=== PATIENT | female | born 1995 | race Caucasian/White ===

== ENCOUNTER 2017-08-06 09:09 | Inpatient (IN) | payer OTHER ==
[~2017-08-06] VITALS: Ht 157.5 cm; Wt 85.0 kg
[2017-08-06] VITALS (26 sets, daily range): BP systolic 103–171; BP diastolic 45–112; PULSE 54–126; RESP 14–20; TEMP 97.3–98.3
[~2017-08-06 09:09] MED LIST: LORT5TAB PO; PRENTAB72 PO
[2017-08-06] MEDS ORDERED: LACTATED RINGER'S 1000 ML INJ 1,000 ML IV PRN (09:28)
[2017-08-06] MEDS ORDERED: PENICILLIN G POTASSIUM INJ 5,000,000 UNITS in SODIUM CHLORIDE 0.9% INJ 100 ML IV ONE (09:30)
[2017-08-06] MEDS ORDERED: OXYTOCIN 30 UNITS-500ML PREMIX 500 ML IV ONE (09:30)
[2017-08-06] MEDS ORDERED: MINERAL OIL 10 ML VIAL TOPICAL PRN (09:30)
[2017-08-06] MEDS ORDERED: SODIUM CHLORID 0.9% 500 ML INJ 500 ML IV PRN (09:30)
[2017-08-06] MEDS ORDERED: CITRIC ACID-SODIUM CITRATE LIQ 30 ML UDC PO SCH (09:30)
[2017-08-06] MEDS ORDERED: LIDOCAINE HCL 1% 50 ML VIAL I-DERMAL PRN (09:30)
[2017-08-06] MEDS ORDERED: LIDOCAINE HCL 1% 50 ML VIAL INFIL PRN (09:30)
--- NOTE | 2017-08-06 09:33 | HHI.HP ---
HPI Chief Complaint Contractions Date Seen: Aug 06, 2017 Time Seen: 09:28 Travel History International Travel<30 Days: No Contact w/Intl Traveler<30Days: No Known Affected Area: No History of Present Illness HPI Patient is 22-year-old white female at 40 weeks 4 days sees the [facility] and presents in active labor. Cervix is 7 cm 100% effaced with a bulging bag, heart tones are reactive and she is lee regularly Weeks Gestation: 40 Para: 1 : 2 History Obstetric History Obstetric History 1 vaginal delivery Social History Alcohol Use: No Tobacco Use: No Substance Abuse: No Allergies-Medications (Allergen,Severity, Reaction): Coded Allergies: No Known Allergies (Unverified , 03/19/12) Home Meds Reported Medications Hydrocodone-Acetaminophen (Lortab 5/500) 5 Mg/500 Mg Tab, 1 TAB PO Q4-6HPRN, #20 03/21/12 Vit W/ Ferrous Fumara () Tab, 1 PO DAILY 03/19/12 Review of Systems General / Constitutional: No: Fever, Weight Gain, Chills, Other Eyes: No: Diploplia, Blurred Vision, Visual changes, Pain, Photophobia HENT: No: Headaches, Vertigo, Lightheadedness Cardiovascular: No: Irregular Rhythm, Chest Pain or Discomfort, Palpitations, Tachycardia, Syncope, Varicosities, Edema, Cyanosis Respiratory: No: Cough, Short of Breath, Other Gastrointestinal: Abdominal Pain, No: Nausea, Vomiting, Diarrhea Genitourinary: No: Decreased Urinary Output, Oliguria Musculoskeletal: No: Limited ROM, Weakness, Cramping, Edema, Pain Skin: No Rash, No Itching, No Dryness, No Lumps, No Change in Pigmentation, No Change in Nails, No Alopecia, No Lesions Neurologic: No: Weakness, Dizziness, Syncope, Focal Abnormalities, Coordination Problem, Headache, Slurred Speech, Seizures Psychiatric: No: Depression, Suicidal Ideations, Homicidal Ideation Endocrine: No: Heat Intolerance, Cold Intolerance, Polydipsia, Polyuria, Other Physical Exam Narrative GENERAL: Well-nourished, well-developed patient. SKIN: Warm and dry. HEAD: Normocephalic and atraumatic. EYES: No scleral icterus. No injection or drainage. ENT: No nasal drainage noted. Mucous membranes pink. Airway patent. NECK: Supple, trachea midline. No JVD. CARDIOVASCULAR: Regular rate and rhythm without murmurs, gallops, or rubs. RESPIRATORY: Breath sounds equal bilaterally. No accessory muscle use. BREASTS: Bilateral exam showed no masses , no retractions, no nipple discharge. ABDOMEN/GI: Abdomen soft, non-tender, bowel sounds present, no rebound, no guarding Gravid to [-40] weeks size Fundal Height: [-40] GENITOURINARY: External Genitalia: intact and normal in appearance BUS glands: [-] Cervix: [-] Dilatation: [-7] Effacement: [100-] Station: [-1] Presentation: [vtx-] Membranes: [intact ] Uterine Contractions: [-reg] FHT's: Category: [1-] Baseline: [-133] Reactive: [-R] Variability: [-mod] Decels: [-none] EXTREMITIES: No cyanosis or edema. BACK: Nontender without obvious deformity. No CVA tenderness. NEUROLOGICAL: Awake and alert. Motor and sensory grossly within normal limits. Five out of 5 muscle strength in all muscle groups. Normal speech. Caprini VTE Risk Assessment Caprini VTE Risk Assessment: No/Low Risk (score <= 1) Caprini Risk Assessment Model Point Value = 1 Point Value = 2 Point Value = 3 Point Value = 5 Age 41-60 Minor surgery BMI > 25 kg/m2 Swollen legs Varicose veins or History of unexplained or recurrent spontaneous Oral contraceptives or hormone replacement Sepsis (< 1 month) Serious lung disease, including pneumonia (< 1 month) Abnormal pulmonary function Acute myocardial infarction Congestive heart failure (< 1 month) History of inflammatory bowel disease Medical patient at bed rest Age 61-74 Arthroscopic surgery Major open surgery (> 45 min) Laparoscopic surgery (> 45 min) Malignancy Confined to bed (> 72 hours) Immobilizing plaster cast Central venous access Age >= 75 History of VTE Family history of VTE Factor V Leiden Prothrombin [id number] Lupus anticoagulant Anticardiolipin antibodies Elevated serum homocysteine Heparin-induced thrombocytopenia Other congenital or acquired thrombophilia Stroke (< 1 month) Elective arthroplasty Hip, pelvis, or leg fracture Acute spinal cord injury (< 1 month) Prophylaxis Regimen Total Risk Factor Score Risk Level Prophylaxis Regimen 0-1 Low Early ambulation 2 Moderate Order ONE of the following: *Sequential Compression Device (SCD) *Heparin 5000 units SQ BID 3-4 Higher Order ONE of the following medications: *Heparin 5000 units SQ TID *Enoxaparin/Lovenox 40 mg SQ daily (WT < 150 kg, CrCl > 30 mL/min) *Enoxaparin/Lovenox 30 mg SQ daily (WT < 150 kg, CrCl > 10-29 mL/min) *Enoxaparin/Lovenox 30 mg SQ BID (WT < 150 kg, CrCl > 30 mL/min) AND/OR *Sequential Compression Device (SCD) 5 or more Highest Order ONE of the following medications: *Heparin 5000 units SQ TID (Preferred with Epidurals) *Enoxaparin/Lovenox 40 mg SQ daily (WT < 150 kg, CrCl > 30 mL/min) *Enoxaparin/Lovenox 30 mg SQ daily (WT < 150 kg, CrCl > 10-29 mL/min) *Enoxaparin/Lovenox 30 mg SQ BID (WT < 150 kg, CrCl > 30 mL/min) AND *Sequential Compression Device (SCD) Data Data Orders Orders Ob (2e) Additional Admit Info (08/06/17 09:28) Admit To Inpatient (08/06/17 ) Vital Signs (Adult) .Per protocol (08/06/17:28) Heart (08/06/17:28) Amnioinfusion (08/06/17:28) Urinary Catheter Management .ONCE (08/06/17:28) Diet Npo (08/06/17 Breakfast) Lactated Ringer's 1000 Ml Inj (Lr 1000 M (08/06/17 09:28) Lactated Ringer's 1000 Ml Inj (Lr 1000 M (08/06/17 09:28) Sodium Chlorid 0.9% 500 Ml Inj (Ns 500 M (08/06/17 09:30) Sodium Chlor 0.9% 1000 Ml Inj (Ns 1000 M (08/06/17 09:48) Lidocaine 1% Inj (50 Ml) (Xylocaine 1% I (08/06/17 09:30) Citric Acid-Sodium Citrate Liq (Bicitra (08/06/17 09:30) Fentanyl Inj (Fentanyl Inj) (08/06/17 09:30) Fentanyl Inj (Fentanyl Inj) (08/06/17 09:30) Penicillin G Potassium Inj (Pfizerpen-G (08/06/17 09:30) Penicillin G Potassium Inj (Pfizerpen-G (08/06/17 13:30) Complete Blood Count With Diff (08/06/17 09:28) Hold Clot (08/06/17 09:28) Abo/Rh Blood Type (08/06/17 09:28) Urinalysis - C+S If Indicated (08/06/17 09:28) Drug Screen, Random Urine (08/06/17:28) Ob/Psych Drug Screen, Urine (08/06/17:28) Resp Oxygen Non Rebreathe Mask (08/06/17 ) ^ Epidural / Intrathecal Infus (08/06/17 09:28) Oxytocin 30 Units-500ml Premix (Pitocin (08/06/17 09:30) Lidocaine 1% Inj (50 Ml) (Xylocaine 1% I (08/06/17 09:30) Light Mineral Oil (Muri-Lube Oil) (08/06/17 09:30) Assessment/Plan Assessment and Plan Patient is a 22-year-old white female at 40 weeks 4 days presents in active labor. Cervix 7/100/-1 bulging bag, vertex presentation, patient sees the [facility] and today Dr. Negron is on for them Impression--active labor at term Plan-admit to labor and delivery, managed labor, anticipate vaginal delivery Keven Young II, MD Aug 06, 2017 09:33
[2017-08-06] MEDS ORDERED: SODIUM CHLOR 0.9% 1000 ML INJ 1,000 ML IV PRN (09:48)
[2017-08-06] MEDS ORDERED: fentaNYL 2MCG-BUPIV 0.125% INJ 100 ML ONE (09:51)
[2017-08-06 09:52] LABS: AUTOMATED NEUTROPHIL # 13.1 TH/MM3 (1.8-7.7); BASOPHIL # 0.1 TH/MM3 (0-0.2); BASOPHIL % 0.4 % (0.0-2.0); EOSINOPHIL # 0.1 TH/MM3 (0-0.4); EOSINOPHIL % 0.4 % (0.0-4.0); HEMOGLOBIN 11.2 GM/DL (11.6-15.3); LYMPH % 11.5 % (9.0-44.0); LYMPHOCYTE # 1.8 TH/MM3 (1.0-4.8); MEAN CELL VOLUME 78.3 FL (80.0-100.0); MEAN PLATELET VOLUME 8.6 FL (7.0-11.0); MONO % 4.9 % (0.0-8.0); MONOCYTE # 0.8 TH/MM3 (0-0.9); NEUT % 82.8 % (16.0-70.0); PLATELET COUNT 282 TH/MM3 (150-450); RED BLOOD COUNT 4.46 MIL/MM3 (4.00-5.30); RED CELL DISTRIBUTION WIDTH 15.7 % (11.6-17.2); WHITE BLOOD COUNT 15.8 TH/MM3 (4.0-11.0)
[2017-08-06 09:58] LABS: BACTERIA, URINE OCC /hpf; BILIRUBIN, URINE NEG (NEG); BLOOD, URINE MOD (NEG); GLUCOSE,URINE NEG (NEG); KETONE, URINE NEG (NEG); NITRITE,URINE NEG (NEG); SQUAMOUS EPITHELIAL CELL URINE 58 /hpf (0-5); URINE COLOR YELLOW (YELLW/STRAW); URINE LEUKOCYTE ESTERASE LARGE (NEG)
[2017-08-06] MEDS: LACTATED RINGER'S 1000 ML INJ 1,000 ML IV SCH ×2 (10:42→17:28)
[2017-08-06] MEDS ORDERED: DO NOT ADMINISTER ANTICOAGULANTS PRN (11:30)
[2017-08-06] MEDS ORDERED: fentaNYL 2MCG-BUPIV 0.125% 100 ML EPIDURAL SCH (11:30)
[2017-08-06] MEDS ORDERED: NO SYSTEM NARCOTICS PRN (11:30)
[2017-08-06] MEDS ORDERED: ePHEDrine/NS 25 MG/5 ML SYRINGE IV PUSH PRN (11:30)
--- NOTE | 2017-08-06 12:10 | PD.OB.DELI ---
Weeks gestation: 40 Gest age assessed date: Aug 06, 2017 Gest age assessed time: 10:00 Pt started active labor?: Yes Active labor start date: Aug 06, 2017 Active labor start time: 07:30 Medical induction of labor?: No Artificial rupture of membrane: Yes Artificial ROM date: Aug 06, 2017 Artifical ROM time: 11:00 Anesthesia: Epidural Episiotomy: None Vaginal Delivery: Normal, Vacuum Presentation: Occiput anterior Nuchal Cord: x1, Other (cord avulsed while reducing nuchal loop at one inch from umbulicus and quickly clamped) Shoulder Dystocia: Suprapubic pressure given Infant: Female Delivery date: Aug 06, 2017 Delivery time: 12:09 One Minute : 9 Five Minute : 9 Placenta: Spontaneous delivery, Other (bilobed placenta with both lobes removed intact) Laceration: No lacerations Estimated blood loss: 200 Antoinette Negron MD Aug 06, 2017 12:10
--- NOTE | 2017-08-06 12:13 | HHI.DCPOC ---
Discharge Care Plan Report Symptoms to Your Doctor -Temperature above 100.5 degrees -Redness, of incision or excessive or foul smelling drainage -Unusual pain or calf pain -Increased vaginal bleeding -Painful or difficulty urinating -Feelings of extreme sadness or anxiety after 2 weeks Goals to Promote Your Health * To prevent worsening of your condition and complications * To maintain your health at the optimal level Directions to Meet Your Goals Take your medications as prescribed Follow your dietary instruction Follow activity as directed Ensure plenty of rest for recovery Drink fluids for hydration Keep your appointments as scheduled Take your immunizations and boosters as scheduled If your symptoms worsen call your PCP, if no PCP go to Urgent Care Center or Emergency Room Smoking is Dangerous to Your Health. Avoid second hand smoke Call the 24-hour crisis hotline for domestic abuse at Antoinette Negron MD Aug 06, 2017 12:13
[2017-08-06] MEDS: PENICILLIN G POTASSIUM INJ 2,500,000 UNITS in SODIUM CHLORIDE 0.9% INJ 100 ML IV SCH ×2 (16:22→17:57)
[2017-08-07 08:00] VITALS: BP 122/77; PULSE 71; RESP 20; TEMP 98.1
--- NOTE | 2017-08-07 08:04 | HHI.OB ---
Subjective Post Day: 1 Remarks Doing well, pain controlled, vaginal bleeding less than menses, Objective Vitals/I&O Vital Signs Date Time Temp Pulse Resp B/P (MAP) Pulse Ox O2 Delivery O2 Flow Rate FiO2 08/06/17 19:15 98.3 66 14 150/84 (106) 08/06/17 13:00 18 08/06/17 13:00 57 131/75 (93) 08/06/17 12:45 63 132/67 (88) 08/06/17 12:41 20 08/06/17 12:31 126 119/60 (79) 08/06/17 12:30 18 08/06/17 12:15 78 130/89 (103) 08/06/17 12:15 16 08/06/17 12:01 66 127/45 (72) 08/06/17 11:57 63 130/67 (88) 08/06/17 11:56 18 08/06/17 11:56 97.3 08/06/17 11:31 60 124/67 (86) 08/06/17 11:00 110 103/63 (76) 08/06/17 10:45 54 116/66 (83) 08/06/17 10:38 18 08/06/17 10:30 57 08/06/17 10:30 62 123/64 (83) 08/06/17 10:26 63 111/72 (85) 08/06/17 10:25 61 08/06/17 10:21 130/69 (89) 08/06/17 10:21 61 08/06/17 10:20 59 08/06/17 10:16 70 137/69 (91) 08/06/17 10:15 65 08/06/17 10:10 69 08/06/17 10:10 69 151/80 (103) 08/06/17 10:07 70 139/112 (121) 08/06/17 10:05 104 08/06/17 10:01 68 171/91 (117) 08/06/17 09:56 97.7 20 08/06/17 09:56 67 164/99 (120) Objective Remarks GENERAL: Well-nourished, well-developed patient. CARDIOVASCULAR: Regular rate and rhythm without murmurs, gallops, or rubs. RESPIRATORY: Breath sounds equal bilaterally. No accessory muscle use. ABDOMEN/GI: Abdomen soft, non-tender. Fundus: Firm, non-tender at umbilicus. GENITOURINARY: Light to moderate bleeding. EXTREMITIES: No cyanosis or edema, non-tender, without signs of DVT. Medications and IVs Current Medications Medications (Trade) Dose Ordered Sig/Parminder Route Start Time Stop Time Status Last Admin (Xylocaine 1% Inj (50 ml)) 0.1 ml UNSCH X1 PRN I-DERMAL 08/06/17 09:30 08/09/17 09:29 (Bicitra Liq) 30 ml AUTOMATIC LINE SET UP MECHANIC PO 08/06/17 09:30 08/10/17 09:29 (Xylocaine 1% Inj (50 ml)) 10 ml UNSCH X1 PRN INFIL 08/06/17 09:30 08/08/17 09:29 Miscellaneous Information No systemic narcotics to be given except... UNSCH PRN .XX 08/06/17 11:30 08/07/17 11:29 Miscellaneous Information DO NOT ADMINISTER ANY ANTICOAGUL... UNSCH PRN .XX 08/06/17 11:30 08/07/17 11:29 (ePHEDrine/NS 25 MG/5 ML SYR) 10 mg UNSCH PRN IV PUSH 08/06/17 11:30 08/07/17 11:29 Assessment/Plan Assessment and Plan 22 yo s/p VAVD at 40.4w, 1. PPD #1: Doing well, afebrile, vital signs stable. Discussed precautions, expectations, and follow-up. Patient was GBS positive, if baby is cleared for discharge later today possible discharge home then, otherwise tomorrow morning. - desires circ, 2. Rh neg: Rhogam per protocol 3. Marijuana positive UDS: Social work involved. Rashad Pringle MD Aug 07, 2017 08:04
[2017-08-07] MEDS ORDERED: SODIUM CHLORIDE 0.9% FLUSH 10 ML FLUSH IV FLUSH PRN (10:00)
[2017-08-07] MEDS ORDERED: ACETAMINOPHEN 325 MG TAB PO PRN (10:00)
[2017-08-07] MEDS ORDERED: WITCH HAZEL 50%/GLYCERIN 12.5% 40 PAD JAR TOPICAL PRN (10:00)
[2017-08-07] MEDS ORDERED: oxyCODONE/ACETAMINOPHEN 5 MG/325 MG TAB PO PRN ×2 (10:00)
[2017-08-07] MEDS ORDERED: IBUPROFEN 800 MG TAB PO PRN (10:00)
[2017-08-07] MEDS ORDERED: ALUMINUM/MAGNESIUM/SIMETH 30 ML CUP PO PRN (10:00)
[2017-08-07] MEDS ORDERED: BENZOCAINE 20% TOPICAL SPRAY 60 ML CAN TOPICAL PRN (10:00)
[2017-08-07] MEDS ORDERED: DOCUSATE SODIUM 50 MG/SENNA 8.6 MG TAB PO PRN (10:00)
[2017-08-07] MEDS ORDERED: ONDANSETRON ODT 4 MG TAB PO PRN (10:00)
[2017-08-07] MEDS ORDERED: OXYTOCIN 30 UNITS-500ML PREMIX 500 ML IV SCH (10:00)
[2017-08-07] MEDS ORDERED: MEASLES, MUMPS, RUBELLA VACCINE 0.5 ML VIAL SQ ONE (16:00)
[2017-08-07] MEDS ORDERED: DIPHTH/TETANUS/ACEL PERTUSSIS (BOOSTER) 0.5 ML VIAL/PFS IM ONE (16:00)
[2017-08-07 20:00] VITALS: BP 143/88; PULSE 76; RESP 18; TEMP 98.2
[2017-08-07] MEDS ORDERED: ZOLPIDEM TARTRATE 5 MG TAB PO PRN (21:00)
[2017-08-07] MEDS ORDERED: SODIUM CHLORIDE 0.9% FLUSH 10 ML FLUSH IV FLUSH SCH (21:00)
--- NOTE | 2017-08-08 07:42 | HHI.OB ---
Subjective Post Day: 2 Remarks Doing well, vaginal bleeding less than menses, ready for discharge home, denies headache, blurred vision, epigastric pain. Objective Vitals/I&O Vital Signs Date Time Temp Pulse Resp B/P (MAP) Pulse Ox O2 Delivery O2 Flow Rate FiO2 08/07/17 20:00 143/88 (106) 08/07/17 20:00 98.2 76 18 08/07/17 08:00 98.1 71 20 122/77 (92) Objective Remarks GENERAL: Well-nourished, well-developed patient. CARDIOVASCULAR: Regular rate and rhythm without murmurs, gallops, or rubs. RESPIRATORY: Breath sounds equal bilaterally. No accessory muscle use. ABDOMEN/GI: Abdomen soft, non-tender. Fundus: Firm, non-tender at umbilicus. GENITOURINARY: Light to moderate bleeding. EXTREMITIES: No cyanosis or edema, non-tender, without signs of DVT. Medications and IVs Current Medications Medications (Trade) Dose Ordered Sig/Parminder Route Start Time Stop Time Status Last Admin (Xylocaine 1% Inj (50 ml)) 0.1 ml UNSCH X1 PRN I-DERMAL 08/06/17 09:30 08/09/17 09:29 (Bicitra Liq) 30 ml EXTENSION COURSE COORDINATOR PO 08/06/17 09:30 08/10/17 09:29 (Xylocaine 1% Inj (50 ml)) 10 ml UNSCH X1 PRN INFIL 08/06/17 09:30 08/08/17 09:29 (Tylenol) 650 mg Q4H PRN PO 08/07/17 10:00 (Motrin) 800 mg Q8H PRN PO 08/07/17 10:00 (Percocet 5-325 Mg) 1 tab Q4H PRN PO 08/07/17 10:00 (Percocet 5-325 Mg) 2 tab Q4H PRN PO 08/07/17 10:00 (NS Flush) 2 ml BID IV FLUSH 08/07/17 21:00 (NS Flush) 2 ml UNSCH PRN IV FLUSH 08/07/17 10:00 (Americaine 20% Top Spr) 1 spray Q4H PRN TOPICAL 08/07/17 10:00 (Tucks Pads) 1 applic QID PRN TOPICAL 08/07/17 10:00 (Matilda-Colace) 2 tab Q12H PRN PO 08/07/17 10:00 (Ambien) 5 mg HS PRN PO 08/07/17 21:00 (Mag-Al Plus Susp Liq) 15 ml Q8H PRN PO 08/07/17 10:00 (Zofran Odt) 4 mg Q6H PRN PO 08/07/17 10:00 Assessment/Plan Assessment and Plan 22 yo s/p VAVD at 40.4w, 1. PPD #2: Doing well, afebrile, vital signs stable. Discharge home today. Discussed precautions, expectations, and follow-up. 2. Rh neg: Rhogam per protocol 3. Marijuana positive UDS: Social work involved. 4. Isolated Elevated BPs: Blood pressures mostly normotensive following delivery , occasional mild range, will not collect HELLP labs or P:C at this time, no signs or symptoms of preeclampsia, discussed these sx for after discharge, will follow up in 1 week for blood pressure check. Rashad Pringle MD Aug 08, 2017 07:42
[2017-08-08 09:00] VITALS: BP 137/88; PULSE 86; RESP 18; TEMP 98.1
== END 2017-08-08 16:31 | disposition home or self-care (01) | DRG 775 ==
LOC: HOBED 09:09 → H2EB 09:32 → H1EA 13:24
PROVIDERS: ADMIT Obstetrics & Gynecology; ATTEND Obstetrics & Gynecology
PROC: 10D07Z6 Extraction of Products of Conception, Vacuum, Via Natural or Artificial Opening (ICD-10-PCS; principal; 2017-08-06)
PROC: 3E0R3BZ Introduction of Anesthetic Agent into Spinal Canal, Percutaneous Approach (ICD-10-PCS; 2017-08-06)
PROC: 00HU33Z Insertion of Infusion Device into Spinal Canal, Percutaneous Approach (ICD-10-PCS; 2017-08-06)
DX: O99.824 Streptococcus B carrier state complicating childbirth (principal); O36.0930 Maternal care for other rhesus isoimmunization, third trimester, not applicable or unspecified; O66.0 Obstructed labor due to shoulder dystocia; O69.89X0 Labor and delivery complicated by other cord complications, not applicable or unspecified; O43.193 Other malformation of placenta, third trimester; R82.5 Elevated urine levels of drugs, medicaments and biological substances; Z37.0 Single live birth; Z3A.40 40 weeks gestation of pregnancy
CPT/HCPCS: 59025; 80307; 81001; 86900; 86901; 87086; 90715; G0481; J2540; J7120